=== PATIENT | female | born 1985 | race Caucasian/White ===

== ENCOUNTER 2017-05-26 02:11 | Emergency (ER) | payer MEDICAID ==
[2017-05-26] MEDS: OXYMETAZOLINE 0.05% 15 ML NAS SPRAY NASAL (04:00)
== END 2017-05-26 10:46 | disposition home or self-care (01) ==
LOC: E/R 10:46
DX: F10.920 Alcohol use, unspecified with intoxication, uncomplicated (principal)
CPT/HCPCS: 99282; Z7502